=== PATIENT | male | born 1990 | race Hispanic/Latino ===

== ENCOUNTER 2017-06-15 15:30 | Inpatient (IN) | payer BC ==
[~2017-06-15] VITALS: Ht 160 cm; Wt 67.2 kg
[~2017-06-15 15:30] MED LIST: FENTANYL CITRATE/PF 100MCG/2 ML INJ ONE; MIDAZOLAM HCL 2 MG/2 ML VIAL ONE
--- OUTSIDE RECORDS SUMMARY | 2017-06-15 15:33 | XMS REPORT | Clinical Summary ---
Author Author [facility] Organization [facility] Address Unknown Phone Unavailable Care Team Providers Care Grounds/Maintenance Specialist Name Role Phone Asked, Pcp PCP Unavailable Allergies No Known Allergies Current Medications Prescription Sig. Disp. Refills Start End Date Status Date clarithromycin (BIAXIN) 0 05/23/19 Active 500 MG tablet 18 omeprazole (PriLOSEC) 20 0 05/23/19 Active MG capsule 18 metroNIDAZOLE (FLAGYL) 0 05/23/19 05/25/19 Discontin 500 MG tablet 18 18 ued acetaminophen-codeine Take 1-2 tablets by mouth 15 tablet 0 05/25/19 06/09/19 (TYLENOL WITH CODEINE #3) every 6 (six) hours as 18 18 300-30 mg per tablet needed for moderate pain for up to 15 days. ciprofloxacin (CIPRO) 500 Take 1 tablet (500 mg 14 tablet 0 05/25/19 06/01/19 MG tablet total) by mouth 2 (two) 18 18 times a day for 7 days. metroNIDAZOLE (FLAGYL) Take 1 tablet (500 mg 14 tablet 0 05/25/19 500 MG tablet total) by mouth 2 (two) 18 18 times a day for 7 days. Active Problems Not on file Encounters Date Type Specialty Care Team Description 05/25/2017 Emergency Emergency Medicine Ivan Billings MD Terminal ileitis without complication (Primary Dx) after 06/14/2016 Social History Tobacco Use Types Packs/Day Years Used Date Current Every Day Smoker Smokeless Tobacco: Current User Alcohol Use Drinks/Week oz/Week Comments No Sex Assigned at Date Recorded Not on file Last Filed Vital Signs Vital Sign Reading Time Taken Blood Pressure 110/56 05/25/2017 2:38 PM [employer] Pulse 68 05/25/2017 2:38 PM [employer] Temperature 36.9 C (98.5 F) 05/25/2017 10:40 AM [employer] Respiratory Rate 19 05/25/2017 2:38 PM [employer] Oxygen Saturation 100% 05/25/2017 2:38 PM [employer] Inhaled Oxygen - - Concentration Weight - - Height 162.6 cm (5' 4") 05/25/2017 10:41 AM [employer] Body Mass Index - - Plan of Treatment Health Maintenance Due Date Last Done Comments INFLUENZA VACCINE 11/16/2016 Results * CT Abdomen Pelvis W Contrast (05/25/2017 1:34 PM) Specimen Performing Laboratory [facility] [address] [place] [address] Narrative EXAMINATION:CT ABDOMEN PELVIS W CONTRAST CLINICAL HISTORY:right sided abdominal painr o appendicitis COMPARISON:None. TECHNIQUE: Multiple axial CT images of the Abdomen and pelvis were obtained With IV contrast Oral contrast was administered. . Sagittal and coronal reconstructions were done. CT imaging was performed with iterative reconstruction technique and/or automated exposure control to reduce radiation dose. FINDINGS: HEPATOBILIARY:No focal hepatic lesions. No biliary ductal dilation. GALLBLADDER: Normal. SPLEEN:No splenomegaly. PANCREAS:No focal masses or ductal dilation. ADRENALS:No adrenal nodules. KIDNEYS:No hydronephrosis, stones or solid masses. PERITONEUM/RETROPERITONEUM:No free air or free fluid. No loculated fluid collections. ABDOMINAL AORTA/IVC: No aneurysm or dissection. GI TRACT:There is wall thickening of the terminal ileum with surrounding fat stranding and adenopathy. Proximal to this, there is no bowel distention to suggest obstruction. The appendix is normal. The colon is unremarkable within the limitations of the study. PELVIC ORGANS/BLADDER:Unremarkable. BONES AND SOFT TISSUES:Unremarkable. VISUALIZED LOWER CHEST: No acute abnormality. IMPRESSION: Terminal ileitis. Inflammatory bowel disease and infection in the differential diagnosis. No signs of bowel obstruction. Consider endoscopy when appropriate to exclude solid mucosal lesions. The appendix is normal. [facility] [id number] Procedure Note Interface, Radiology Results Incoming - 05/25/2017 1:54 PM [employer] EXAMINATION: CT ABDOMEN PELVIS W CONTRAST CLINICAL HISTORY: right sided abdominal pain r o appendicitis COMPARISON: None. TECHNIQUE: Multiple axial CT images of the Abdomen and pelvis were obtained With IV contrast Oral contrast was administered. . Sagittal and coronal reconstructions were done. CT imaging was performed with iterative reconstruction technique and/or automated exposure control to reduce radiation dose. FINDINGS: HEPATOBILIARY: No focal hepatic lesions. No biliary ductal dilation. GALLBLADDER: Normal. SPLEEN: No splenomegaly. PANCREAS: No focal masses or ductal dilation. ADRENALS: No adrenal nodules. KIDNEYS: No hydronephrosis, stones or solid masses. PERITONEUM/RETROPERITONEUM: No free air or free fluid. No loculated fluid collections. ABDOMINAL AORTA/IVC: No aneurysm or dissection. GI TRACT: There is wall thickening of the terminal ileum with surrounding fat stranding and adenopathy. Proximal to this, there is no bowel distention to suggest obstruction. The appendix is normal. The colon is unremarkable within the limitations of the study. PELVIC ORGANS/BLADDER: Unremarkable. BONES AND SOFT TISSUES: Unremarkable. VISUALIZED LOWER CHEST: No acute abnormality. IMPRESSION: Terminal ileitis. Inflammatory bowel disease and infection in the differential diagnosis. No signs of bowel obstruction. Consider endoscopy when appropriate to exclude solid mucosal lesions. The appendix is normal. [facility] [id number] * Urinalysis screen and microscopy, with reflex to culture (05/25/2017 11:23 AM) Component Value Ref Range Specimen site Clean catch Color, UA Yellow Appearance, UA Clear Specific gravity, UA 1.016 1.001 - 1.035 pH, UA 5.0 5.0 - 8.5 Protein, UA Negative Negative Glucose, UA Negative Negative Ketones, UA Negative Negative Bilirubin, UA Negative Negative Blood, UA Negative Negative Nitrite, UA Negative Negative Urobilinogen, UA 2.0 (A) <2.0 Leukocyte esterase, UA Trace (A) Negative WBC, UA <1 0 - 1 /HPF RBC, UA <1 0 - 1 /HPF Bacteria, UA None seen None seen Yeast, UA None seen Yeast with pseudohyphae, None seen UA Specimen Performing Laboratory Urine [facility] DEPARTMENT OF PATHOLOGY AND GENOMIC MEDICINE [address] [place] [address] * Gram stain (05/25/2017 11:23 AM) Component Value Ref Range Gram stain result Rare WBC's No organisms seen Comment: Specimen Information Specimen Source: Urine Specimen Site: Clean catch Specimen Performing Laboratory Urine [facility] DEPARTMENT OF PATHOLOGY AND GENOMIC MEDICINE [address] [place] [id number] * Urine culture (05/25/2017 11:23 AM) Component Value Ref Range Urine culture isolate No growth after 2 days. Comment: Specimen Information Specimen Source: Urine Specimen Site: Clean catch Specimen Performing Laboratory Urine [facility] DEPARTMENT OF PATHOLOGY AND GENOMIC MEDICINE [address] [place] [address] * Estimated GFR (05/25/2017 11:15 AM) Component Value Ref Range GFR Non Af Amer >90 mL/min/1.73 m2 GFR Af Amer >90 mL/min/1.73 m2 Comment: Chronic kidney disease: <60 mL/min/1.73m2 Kidney failure: <15 mL/min/1.73m2 The estimated GFR is calculated from the IDMS-traceable Modification of Diet in Renal Disease Equation. The accuracy of the calculation is poor when the creatinine is normal. Calculated values >90 mL/min/1.73m2 are not reported. This equation has not been validated in children (<18 years), women, the elderly (>70 years), or ethnic groups other than Caucasians and Americans. Specimen Performing Laboratory Plasma specimen [facility] DEPARTMENT OF PATHOLOGY AND GENOMIC MEDICINE [address] [place] [address] * CBC with platelet and differential (05/25/2017 11:15 AM) Component Value Ref Range WBC 10.1 4.2 - 11.0 k/uL RBC 4.45 4.04 - 5.86 m/uL HGB 11.5 (L) 13.0 - 17.3 g/dL HCT 36.4 34.0 - 45.0 % MCV 81.8 80.0 - 98.0 fL MCH 25.8 (L) 27.0 - 34.0 pg MCHC 31.6 31.5 - 36.5 g/dL RDW - SD 39.5 37.0 - 51.0 fL MPV 10.2 7.4 - 10.4 fL Platelet count 352 150 - 400 k/uL Nucleated RBC 0.00 /100 WBC Neutrophils 71.5 (H) 36.0 - 66.0 % Lymphocytes 14.0 (L) 24.0 - 44.0 % Monocytes 7.6 (H) 0.0 - 6.0 % Eosinophils 6.1 (H) 0.0 - 6.0 % Basophils 0.6 0.0 - 1.2 % Immature granulocytes 0.2 0.0 - 1.0 % Specimen Performing Laboratory Blood [facility] DEPARTMENT OF PATHOLOGY AND GENOMIC MEDICINE [address] [place] [address] * Lipase level (05/25/2017 11:15 AM) Component Value Ref Range Lipase 322 (H) 65 - 230 U/L Specimen Performing Laboratory Plasma specimen [facility] DEPART[facility] OF PATHOLOGY AND GENOMIC MEDICINE [address] [place] [address] * Comprehensive metabolic panel (05/25/2017 11:15 AM) Component Value Ref Range Sodium 139 135 - 150 mEq/L Potassium 4.1 3.5 - 5.0 mEq/L Chloride 104 100 - 109 mEq/L CO2 31 24 - 32 mmol/L Anion gap 4 (L) 7 - 15 mEq/L Comment: Starting from July , anion gap calculation no longer incorporates potassium. Please note the change. BUN 14 7 - 18 mg/dL Creatinine 0.7 (L) 0.8 - 1.5 mg/dL Glucose 87 65 - 100 mg/dL Calcium 9.1 8.6 - 10.7 mg/dL Protein 7.8 6.3 - 8.2 g/dL Albumin 3.8 3.2 - 5.0 g/dL A/G ratio 1.0 0.7 - 3.8 Alkaline phosphatase 60 30 - 120 U/L AST 12 (L) 15 - 37 U/L ALT 23 (L) 30 - 65 U/L Total bilirubin 0.4 0.2 - 1.2 mg/dL Specimen Performing Laboratory Plasma specimen [facility] DEPARTMENT OF PATHOLOGY AND GENOMIC MEDICINE [address] [place] [address] after 06/14/2016 Insurance Payer Benefit Subscriber ID Type Phone Address Plan / Group BCBS BCBS xxxxxxxxxxxx PPO CHOICE PPO/BOBBI JAMISON PPO
[2017-06-15] MEDS ORDERED: ONDANSETRON HCL INJ 2 MG/ML VIAL IV PRN (16:00)
[2017-06-15] MEDS ORDERED: HYDROMORPHONE 1MG/1ML INJ IV PRN (16:00)
[2017-06-15 16:10] VITALS: BP 138/71
[2017-06-15 16:25] LABS: BASOPHILS % 0.4 % (0.0-1.0); EOSINOPHILS # (AUTO) 0.1 (0.0-0.4); EOSINOPHILS % 0.6 % (0.0-6.0); HEMATOCRIT 38.9 % (38.2-49.6); HEMOGLOBIN 12.8 g/dL (14.0-18.0); LYMPHOCYTES # (AUTO) 0.8 (1.0-3.2); MEAN CORPUSCULAR HGB CONC 32.9 g/dL (31-35); MEAN CORPUSCULAR VOLUME 79.1 fL (81-99); MONOCYTES # (AUTO) 0.4 (0.2-0.8); MONOCYTES % 4.1 % (4.4-11.3); NEUTROPHILS # (AUTO) 9.1 (2.1-6.9); NEUTROPHILS % 86.6 % (38.7-80.0); PLATELET COUNT 314 x10e3/uL (140-360); RED BLOOD COUNT 4.92 x10e6/uL (4.3-5.7); RED CELL DISTRIBUTION WIDTH 13.8 % (11.7-14.4)
[2017-06-15 16:42] LABS: ALANINE AMINOTRANSFERASE 255 IU/L (0-55); ALBUMIN 4.1 g/dL (3.5-5.0); ALKALINE PHOSPHATASE 232 IU/L (40-150); BLOOD UREA NITROGEN 9 mg/dL (7-26); BUN/CREATININE RATIO 11 (6-25); CALCIUM 10.1 mg/dL (8.4-10.2); CARBON DIOXIDE 25 mmol/L (22-29); CHLORIDE 98 mmol/L (98-107); EST GLOMERULAR FILTRATION RATE > 60 ML/MIN (60-); GLUCOSE 116 mg/dL (74-118); SODIUM 136 mmol/L (136-145)
[2017-06-15] MEDS: DEXTROSE 5%/LACTATED RINGERS 1,000 ML IV SCH (16:49)
[2017-06-15 17:04] VITALS: BP 138/71
[2017-06-15] MEDS ORDERED: DICYCLOMINE HCL20 MG PO (17:26)
[2017-06-15] MEDS ORDERED: PENTASA500 MG PO (17:26)
[2017-06-15] MEDS ORDERED: PRILOSEC OTC20 MG PEG (17:26)
[2017-06-15 17:27] VITALS: BP 138/71
[2017-06-15] MEDS ORDERED: CEFOXITIN 1GM/ DEXTROSE 50ML 50 ML IV SCH (18:00)
[2017-06-15] MEDS: CEFOXITIN SOD 1 GM VIAL IV SCH ×2 (18:16→23:33)
[2017-06-15 20:00] VITALS: BP 119/57
[2017-06-15 22:03] VITALS: BP 119/57
[2017-06-16] VITALS (7 sets, daily range): BP systolic 113–124; BP diastolic 56–60
[2017-06-16] MEDS: DEXTROSE 5%/LACTATED RINGERS 1,000 ML IV SCH ×5 (03:31→20:12)
[2017-06-16] MEDS: CEFOXITIN SOD 1 GM VIAL IV SCH ×3 (05:34→20:51)
[2017-06-16 07:20] LABS: BASOPHILS # (AUTO) 0.1 (0.0-0.1); BASOPHILS % 1.2 % (0.0-1.0); EOSINOPHILS # (AUTO) 0.4 (0.0-0.4); HEMATOCRIT 35.5 % (38.2-49.6); HEMOGLOBIN 11.4 g/dL (14.0-18.0); LYMPHOCYTES % 19.4 % (18.0-39.1); MEAN CORPUSCULAR HEMOGLOBIN 25.7 pg (28-32); MEAN CORPUSCULAR HGB CONC 32.1 g/dL (31-35); MEAN CORPUSCULAR VOLUME 80.1 fL (81-99); MONOCYTES # (AUTO) 0.5 (0.2-0.8); MONOCYTES % 10.1 % (4.4-11.3); NEUTROPHILS # (AUTO) 3.2 (2.1-6.9); NEUTROPHILS % 62.1 % (38.7-80.0); PLATELET COUNT 278 x10e3/uL (140-360); RED BLOOD COUNT 4.43 x10e6/uL (4.3-5.7); RED CELL DISTRIBUTION WIDTH 13.9 % (11.7-14.4)
[2017-06-16 07:23] LABS: INR 1.09; PROTHROMBIN TIME 13.3 seconds (11.9-14.5)
[2017-06-16 07:24] LABS: PARTIAL THROMBOPLASTIN TIME 32.7 seconds (23.8-35.5)
[2017-06-16 07:44] LABS: ALANINE AMINOTRANSFERASE 241 IU/L (0-55); ALBUMIN 3.4 g/dL (3.5-5.0); ALBUMIN/GLOBULIN RATIO 0.9 (0.8-2.0); ALKALINE PHOSPHATASE 170 IU/L (40-150); ANION GAP 12.3 mmol/L (8-16); BLOOD UREA NITROGEN 8 mg/dL (7-26); BUN/CREATININE RATIO 10 (6-25); CALCIUM 9.6 mg/dL (8.4-10.2); CARBON DIOXIDE 30 mmol/L (22-29); CHLORIDE 102 mmol/L (98-107); CREATININE, SERUM 0.83 mg/dL (0.72-1.25); EST GLOMERULAR FILTRATION RATE > 60 ML/MIN (60-); GLUCOSE 117 mg/dL (74-118); POTASSIUM 4.3 mmol/L (3.5-5.1); SODIUM 140 mmol/L (136-145)
[2017-06-16] MEDS ORDERED: DEXAMETHASONE SOD PHOS INJ 4 MG/ML VIAL ONE (14:10)
[2017-06-16] MEDS ORDERED: ATROPINE SULFATE 1 MG/ML VIAL ONE (14:10)
[2017-06-16] MEDS ORDERED: KETOROLAC TROMETHAMINE 30 MG/ML VIAL ONE (14:10)
[2017-06-16] MEDS ORDERED: CEFOXITIN SOD 1 GM VIAL ONE (14:10)
[2017-06-16] MEDS ORDERED: ACETAMINOPHEN 1000 MG/100 ML IV ONE (14:10)
[2017-06-16] MEDS ORDERED: NEOSTIGMINE 5 MG/5ML SYR ONE (14:10)
[2017-06-16] MEDS ORDERED: LIDOCAINE HCL 2% LOCAL INJ 5 ML SDV VIAL INJ ONE (14:10)
[2017-06-16] MEDS ORDERED: PROPOFOL IV EMULSION 10 MG/ML 20 ML VIAL ONE (14:10)
[2017-06-16] MEDS ORDERED: ROCURONIUM BROMIDE 10 MG/ML 5ML VIAL ONE (14:10)
[2017-06-16] MEDS ORDERED: SUCCINYLCHOLINE 200 MG/10 ML SYR ONE (14:10)
[2017-06-16] MEDS ORDERED: SEVOFLURANE INHAL SOLN 250 ML PEN BTL ONE (14:10)
[2017-06-16] MEDS ORDERED: ONDANSETRON HCL INJ 2 MG/ML VIAL ONE (14:10)
[2017-06-16] MEDS ORDERED: BUPIVACAINE 0.25% 30ML SDV INJ ONE (14:20)
[2017-06-16] MEDS ORDERED: NALOXONE HCL INJ 0.4 MG/ML AMP IV PRN (15:45)
[2017-06-16] MEDS ORDERED: KETOROLAC TROMETHAMINE 30 MG/ML VIAL IV PRN (15:45)
[2017-06-16] MEDS ORDERED: DIPHENHYDRAMINE HCL INJ 50 MG/ML VIAL IM PRN (15:45)
[2017-06-16] MEDS ORDERED: ONDANSETRON HCL INJ 2 MG/ML VIAL IV PRN (15:45)
[2017-06-16] MEDS ORDERED: ACETAMINOPHEN 1000 MG/100 ML IV PRN (15:45)
[2017-06-16] MEDS ORDERED: HYDROMORPHONE 1MG/1ML INJ ONE (16:03)
[2017-06-16] MEDS ORDERED: HYDROMORPHONE 0.2MG/ML-SOD CHL 30ML PCA SYRINGE IV ONE (16:11)
[2017-06-16] MEDS: HYDROMORPHONE 0.2MG/ML-SOD CHL 30ML PCA SYRINGE IV PRN (21:33)
[2017-06-17] VITALS (7 sets, daily range): BP systolic 115–137; BP diastolic 55–70
[2017-06-17] MEDS: CEFOXITIN SOD 1 GM VIAL IV SCH ×4 (03:21→19:59)
[2017-06-17] MEDS: HYDROMORPHONE 0.2MG/ML-SOD CHL 30ML PCA SYRINGE IV PRN ×2 (05:17→12:28)
[2017-06-17 06:53] LABS: BASOPHILS % 0.2 % (0.0-1.0); EOSINOPHILS # (AUTO) 0.1 (0.0-0.4); HEMATOCRIT 32.2 % (38.2-49.6); HEMOGLOBIN 10.3 g/dL (14.0-18.0); LYMPHOCYTES # (AUTO) 1.3 (1.0-3.2); LYMPHOCYTES % 12.5 % (18.0-39.1); MEAN CORPUSCULAR HEMOGLOBIN 26.1 pg (28-32); MEAN CORPUSCULAR VOLUME 81.7 fL (81-99); MONOCYTES # (AUTO) 0.9 (0.2-0.8); MONOCYTES % 8.5 % (4.4-11.3); NEUTROPHILS % 77.4 % (38.7-80.0); PLATELET COUNT 287 x10e3/uL (140-360); RED BLOOD COUNT 3.94 x10e6/uL (4.3-5.7); RED CELL DISTRIBUTION WIDTH 14.1 % (11.7-14.4)
[2017-06-17 07:20] LABS: ANION GAP 14.7 mmol/L (8-16); BLOOD UREA NITROGEN 7 mg/dL (7-26); BUN/CREATININE RATIO 10 (6-25); CALCIUM 9.3 mg/dL (8.4-10.2); CARBON DIOXIDE 28 mmol/L (22-29); CHLORIDE 104 mmol/L (98-107); CREATININE, SERUM 0.72 mg/dL (0.72-1.25); EST GLOMERULAR FILTRATION RATE > 60 ML/MIN (60-); GLUCOSE 116 mg/dL (74-118); POTASSIUM 4.7 mmol/L (3.5-5.1); SODIUM 142 mmol/L (136-145)
[2017-06-17] MEDS: DEXTROSE 5%/LACTATED RINGERS 1,000 ML IV SCH ×2 (07:36→15:42)
[2017-06-17] MEDS ORDERED: LORAZEPAM INJ 2 MG/ML VIAL IV PRN (21:30)
[2017-06-18] VITALS (8 sets, daily range): BP systolic 106–138; BP diastolic 59–72
[2017-06-18] MEDS: HYDROMORPHONE 0.2MG/ML-SOD CHL 30ML PCA SYRINGE IV PRN ×2 (02:23→13:18)
[2017-06-18] MEDS: DEXTROSE 5%/LACTATED RINGERS 1,000 ML IV SCH ×4 (04:10→22:28)
[2017-06-18] MEDS: CEFOXITIN SOD 1 GM VIAL IV SCH ×4 (04:49→22:15)
[2017-06-18 07:14] LABS: HEMATOCRIT 31.2 % (38.2-49.6); MEAN CORPUSCULAR HEMOGLOBIN 25.9 pg (28-32); MEAN CORPUSCULAR HGB CONC 32.1 g/dL (31-35); MEAN CORPUSCULAR VOLUME 80.8 fL (81-99); PLATELET COUNT 251 x10e3/uL (140-360); RED BLOOD COUNT 3.86 x10e6/uL (4.3-5.7); RED CELL DISTRIBUTION WIDTH 14.1 % (11.7-14.4)
[2017-06-18 07:46] LABS: ANION GAP 12.9 mmol/L (8-16); BLOOD UREA NITROGEN < 5 mg/dL (7-26); CARBON DIOXIDE 28 mmol/L (22-29); CHLORIDE 102 mmol/L (98-107); CREATININE, SERUM 0.65 mg/dL (0.72-1.25); EST GLOMERULAR FILTRATION RATE > 60 ML/MIN (60-); GLUCOSE 103 mg/dL (74-118); POTASSIUM 3.9 mmol/L (3.5-5.1); SODIUM 139 mmol/L (136-145)
[2017-06-18 07:57] LABS: BUN/CREATININE RATIO 8 (6-25)
[2017-06-18 08:58] LABS: BAND NEUTROPHILS % (MANUAL) 1 %; EOSINOPHILS % (MANUAL) 4 % (0-7); LYMPHOCYTES % (MANUAL) 24 % (19-48); MONOCYTES % (MANUAL) 2 % (3.4-9.0); NEUTROPHILS % (MANUAL) 67 % (40-74); PLATELET ESTIMATE ADEQUATE; PLATELET MORPHOLOGY COMMENT NORMAL; RBC MORPHOLOGY COMMENT NORMAL
[2017-06-19] VITALS (7 sets, daily range): BP systolic 115–134; BP diastolic 59–67
[2017-06-19] MEDS: HYDROMORPHONE 0.2MG/ML-SOD CHL 30ML PCA SYRINGE IV PRN (03:49)
[2017-06-19] MEDS: CEFOXITIN SOD 1 GM VIAL IV SCH ×4 (04:56→21:55)
[2017-06-19] MEDS: HYDROCODONE/APAP 7.5MG-325MG 1 EA TAB PO PRN ×2 (14:48→19:51)
[2017-06-19] MEDS: DEXTROSE 5%/LACTATED RINGERS 1,000 ML IV SCH (19:46)
[2017-06-20] VITALS (9 sets, daily range): BP systolic 113–134; BP diastolic 55–71
[2017-06-20] MEDS: CEFOXITIN SOD 1 GM VIAL IV SCH ×4 (04:22→21:36)
[2017-06-20] MEDS: HYDROCODONE/APAP 7.5MG-325MG 1 EA TAB PO PRN ×4 (04:22→20:20)
[2017-06-20] MEDS: DEXTROSE 5%/LACTATED RINGERS 1,000 ML IV SCH ×2 (07:42→13:02)
[2017-06-20] MEDS ORDERED: SODIUM CHLORIDE FLUSH 10 ML SYR INJ PRN (16:45)
[2017-06-21] VITALS: BP 126/58
[2017-06-21] MEDS: HYDROCODONE/APAP 7.5MG-325MG 1 EA TAB PO PRN (02:34)
[2017-06-21] MEDS: CEFOXITIN SOD 1 GM VIAL IV SCH (03:50)
[2017-06-21 04:00] VITALS: BP 115/55
[2017-06-21 07:30] VITALS: BP 115/55
[2017-06-21 07:51] VITALS: BP 139/71
--- NOTE | 2017-06-21 08:03 | Discharge Summary ---
ADMISSION DIAGNOSES 1. Small bowel stricture. 2. Small-bowel obstruction. DISCHARGE DIAGNOSES 1. Small bowel stricture. 2. Small-bowel obstruction. PRINCIPAL PROCEDURE: Laparoscopic-assisted ileocolic resection. HISTORY OF PRESENT ILLNESS: Patient is a 26-year-old male who presented with the complaints of abdominal pain with nausea and vomiting. He had a CT of the abdomen and pelvic, which revealed a stricture in the terminal ileum. He had 20-pound weight loss over the month prior to admission. HOSPITAL COURSE: Patient was admitted to the hospital and underwent surgery. On the 2nd hospital stay, he had laparoscopic-assisted ileocolic resection. Postoperatively, the patient was stable. He was started on a liquid diet on the first postop day, which he tolerated without problem. Bowel function gradually returned to normal. Diet was advanced on the 4th postop day to a regular diet. Bowel function returned to normal. Wounds remained clean. He was discharged home on the 5th postop day. At the time of discharge, he was afebrile. Wounds were clean and tolerating a diet with normal bowel function. DISCHARGE MEDICATIONS: [place] for pain. He will follow up with Dr. Pace in approximately 1 week after discharge. He will continue on Bentyl, Pentasa, and omeprazole as he was taking prior to admission. He was sent home in satisfactory condition on a regular diet. LARA PACE MD Job#: [id number] [place] cc:AZRA GRAY MD
--- NOTE | 2017-07-04 12:35 | Operative Report ---
DATE OF PROCEDURE: June 16, 2017 PREOPERATIVE DIAGNOSIS: Small-bowel stricture, small-bowel obstruction. POSTOPERATIVE DIAGNOSIS: Small-bowel stricture, small-bowel obstruction. PROCEDURE PERFORMED: Laparoscopic-assisted ileocolic resection. [employer] INSTALLER: None. ANESTHESIA: General. INDICATIONS AND FINDINGS: Patient is a 26-year-old male who presented with complaints of abdominal distention and constipation with associated nausea. Workup had revealed a stricture at the terminal ileum at its junction with the cecum. At surgery, there was an inflammatory mass involving the cecum and terminal ileum, with the bowel proximal to this being dilated while the distal bowel was collapsed. There was at least 1 enlarged lymph node within the mesentery. TECHNIQUE: After adequate general endotracheal anesthesia, with the patient in the supine position, the abdomen was prepped and draped in a sterile fashion with Ha solution. Skin in the umbilicus was infiltrated with 0.5% Marcaine. Incision was made in the umbilicus. Abdominal wall was elevated, and a Veress needle was introduced. Pneumoperitoneum was then created. A 10-mm trocar and cannula were then passed through the umbilical wound. Laparoscopic camera was introduced. Initial laparoscopy revealed dilated small bowel. Small amount of free fluid was seen. A 5-mm trocar and cannula were placed suprapubically, and a 5-mm trocar and cannula were placed in the right upper quadrant. These were placed under direct vision. Cecum was retracted medially. Peritoneal attachments were divided. The right ureter was identified and preserved. The colon was mobilized up to the hepatic flexure and freed from all peritoneal attachments, so the right colon was completely free and the small bowel was free. A transverse incision was made in the right side of the abdomen about the level of the umbilicus. The peritoneal cavity was entered. The colon was delivered up into the wound. There appeared to be an inflammatory mass involving the terminal ileum and the cecum. The bowel proximal to this was dilated. The small bowel proximally in the area of the stricture was divided with a TOBI stapler. The mesentery was divided with LigaSure device. Care was taken that the ureter was not involved. The cecum was also freed from peritoneal attachments, and the mesentery to the cecum was divided with a LigaSure device up to about the mid-transverse colon. The colon was then divided with a TOBI stapler, and the specimen was removed. Some bleeding from the mesentery was controlled with suture ligatures of 2-0 silk. Hemostasis was seen to be adequate. There were no other enlarged lymph nodes in the mesentery. Anastomosis was then made between the small bowel and colon with a TOBI stapler and TL-60 stapler. Mesenteric defect was closed with 3-0 Vicryl, and omentum was sutured over the staple line using 3-0 Vicryl. Hemostasis was seen to be adequate. The peritoneal cavity was irrigated with saline. All fluid aspirated and inspected for hemostasis, which was seen to be adequate. The fascia in the transverse wound was then closed with a running suture of #1 PDS. Fascia in the umbilical wound was closed with #0 Vicryl. Each wound was irrigated with saline, and the skin to all wounds was closed with maureen. Sterile dressing was applied. Patient tolerated the procedure well. Estimated blood loss was 150 mL. There were no complications. All counts were correct. Patient was taken to the recovery room in satisfactory condition. Job#: [id number]
== END 2017-06-21 08:03 | disposition home or self-care (01) | DRG 346 ==
LOC: MED/SURG 15:30
PROVIDERS: ADMIT Surgery; ATTEND Surgery
PROC: 0DBB0ZX Excision of Ileum, Open Approach, Diagnostic (ICD-10-PCS; principal; 2017-06-17)
PROC: 0DB Gastrointestinal System, Excision (ICD-10-PCS; 2017-06-17)
DX: K56.609 Unspecified intestinal obstruction, unspecified as to partial versus complete obstruction (principal); G47.33 Obstructive sleep apnea (adult) (pediatric); I10 Essential (primary) hypertension; Z87.891 Personal history of nicotine dependence; R63.4 Abnormal weight loss
CPT/HCPCS: 36415; 80048; 80053; 82948; 85007; 85025; 85027; 85610; 85730; 88307; J0461; J0694; J1100; J1170; J1885; J2001; J2060; J2250; J2405; J7120

== ENCOUNTER 2020-04-20 17:33 | Emergency (ER) | payer BC, OTHER ==
[~2020-04-20] VITALS: Ht 160 cm; Wt 74.4 kg
[~2020-04-20 17:33] MED LIST changes: +DICYCLOMINE HCL20 MG PO; -FENTANYL CITRATE/PF 100MCG/2 ML INJ ONE; -MIDAZOLAM HCL 2 MG/2 ML VIAL ONE; +PENTASA500 MG PO; +PRILOSEC OTC20 MG PEG
[2020-04-20] MEDS ORDERED: HYDROCODONE/APAP 10MG-325MG TAB PO ONE (18:15)
[2020-04-20] MEDS ORDERED: HYDROCODONE/APAP 10MG-325MG TAB ONE (18:25)
[2020-04-20] MEDS ORDERED: DEXAMETHASONE SOD PHOS 10 MG/1 ML VIAL IM STA (20:31)
== END 2020-04-20 20:38 | disposition home or self-care (01) ==
LOC: ER 18:07
DX: M79.652 Pain in left thigh (principal); M06.9 Rheumatoid arthritis, unspecified
CPT/HCPCS: 73502; 99283; J1100

== ENCOUNTER 2021-04-29 22:32 | Emergency (ER) | payer OTHER ==
[~2021-04-29] VITALS: Ht 167.6 cm; Wt 71.7 kg
== END 2021-04-29 23:25 | disposition home or self-care (01) ==
LOC: ER 22:38
DX: R00.2 Palpitations (principal); F19.10 Other psychoactive substance abuse, uncomplicated; F17.210 Nicotine dependence, cigarettes, uncomplicated; R94.31 Abnormal electrocardiogram [ECG] [EKG]
CPT/HCPCS: 93005; 99282

== ENCOUNTER 2024-03-16 18:48 | Emergency (ER) | payer OTHER ==
[~2024-03-16] VITALS: Ht 160 cm; Wt 72.6 kg
[~2024-03-16 18:48] MED LIST changes: +ARAVA20 MG PO; +CYCLOBENZAPRINE5 MG PO; +KEVZARA200 MG/1.2 IM; +METHADONE HCL10 MG PO; +MORPHINE SULFAT30 M2 PO; -PRILOSEC OTC20 MG PEG; +PRILOSEC OTC20 MG PO; +SUCRALFATE1 GM PO; +ULTRAM 50MG50 MG PO
[2024-03-16 19:20] VITALS: PULSE 99; RESP 18; TEMP 98.3
[2024-03-16] MEDS: KETOROLAC TROMETHAMINE 60 MG/2 ML VIAL IM ONE (20:07)
[2024-03-16] MEDS: DEXAMETHASONE SOD PHOS 10 MG/1 ML VIAL IM STA (20:08)
[2024-03-16] MEDS ORDERED: KETOROLAC TROME10 MG PO (20:22)
[2024-03-16] MEDS ORDERED: PREDNISONE20 MG PO (20:24)
[2024-03-16 20:58] VITALS: BP 120/74; O2SAT 100
== END 2024-03-16 20:59 | disposition home or self-care (01) ==
LOC: ER 19:14
DX: M54.50 Low back pain, unspecified (principal); M06.9 Rheumatoid arthritis, unspecified; Z98.0 Intestinal bypass and anastomosis status
CPT/HCPCS: 72131; 99283; J1100; J1885

== ENCOUNTER 2024-03-25 14:01 | Emergency (ER) | payer SELFPAY ==
[~2024-03-25] VITALS: Ht 160 cm; Wt 77.1 kg
[~2024-03-25 14:01] MED LIST changes: +KETOROLAC TROME10 MG PO; +PREDNISONE20 MG PO
[2024-03-25] MEDS: TRAMADOL HCL 50 MG TAB PO ONE (15:11)
[2024-03-25] MEDS: DEXAMETHASONE SOD PHOS 10 MG/1 ML VIAL IM ONE (15:12)
[2024-03-25] MEDS: KETOROLAC TROMETHAMINE 30 MG/ML VIAL IM STA (15:12)
[2024-03-25 15:31] VITALS: PULSE 80; RESP 16; TEMP 98.2; O2SAT 97
== END 2024-03-25 15:42 | disposition home or self-care (01) ==
LOC: ER 14:21
DX: M54.50 Low back pain, unspecified (principal); M06.9 Rheumatoid arthritis, unspecified; Z98.0 Intestinal bypass and anastomosis status
CPT/HCPCS: 99282; J1100; J1885

== ENCOUNTER 2024-06-30 18:11 | Emergency (ER) | payer BC, OTHER ==
[~2024-06-30] VITALS: Ht 160 cm; Wt 77.1 kg
[2024-06-30 18:19] VITALS: PULSE 86; RESP 18; TEMP 98.3
[2024-06-30] MEDS: METHYLPREDNISOLONE SOD SUCC 125 MG/2ML VIAL IM ONE (19:04)
[2024-06-30] MEDS: KETOROLAC TROMETHAMINE 60 MG/2 ML VIAL IM ONE (19:05)
[2024-06-30 19:27] VITALS: BP 121/84; PULSE 74; RESP 18; TEMP 98.3; O2SAT 98
== END 2024-06-30 19:29 | disposition home or self-care (01) ==
LOC: ER 18:42
DX: M25.511 Pain in right shoulder (principal); M06.9 Rheumatoid arthritis, unspecified; Z98.0 Intestinal bypass and anastomosis status
CPT/HCPCS: 99283; J1885; J2919